=== PATIENT | female | born 1945 | race Caucasian/White ===

== ENCOUNTER 2019-01-10 12:35 | Emergency (ER) | payer OTHER ==
--- NOTE | 2019-01-10 12:41 | EDPHY ---
H & P Time Seen by Provider: 01/10/19 12:41 Constitutional: Initial Vital Signs Temperature (C) 36.8 C 01/10/19 12:35 Heart Rate 81 01/10/19 12:35 Respiratory Rate 16 01/10/19 12:35 Blood Pressure 130/92 H 01/10/19 12:35 O2 Sat (%) 95 01/10/19 12:35 O2 Delivery Mode Room Air Allergies/Adverse Reactions: iodine Allergy (Verified 01/10/19 13:10) Hives Home Medications: Medication Instructions Recorded Lamotrigine 01/10/19 Meloxicam 01/10/19 Methocarbamol 01/10/19 Topiramate 01/10/19 Tylenol 01/10/19 busPIRone 01/10/19 traMADol 01/10/19 Medical Decision Making - Diagnostics Imaging Results: Imaging Impressions Chest/Thorax CTA 01/10/19 12:47 Impression: 1. No visible pulmonary embolus, with bolus limitations despite repeat attempt. 2. Trace effusions, with atelectasis. 3. 3 mm left lower lobe nodule of doubtful clinical significance. If the patient is a smoker or is high risk, unenhanced low dose chest CT for follow up in 12 months is considered optional. Otherwise, no further follow up is needed per Fleischner Society criteria. 4. Additional findings, as above. Findings discussed with Jannie Herrera M.D., on January 10, 2019 at 2025. ED Course/Re-evaluation: CHIEF COMPLAINT: HISTORY OF PRESENT ILLNESS: The patient is a 73 y/o female with a history of a recent wrist surgery () arriving via EMS complaining of a chest pressure onset this morning. The patient recently had a right forearm surgery, but has not had any complications after the surgery. Today she developed an intense chest pressure for around 5- 10 minutes. She took 4 baby aspirin and called EMS. When EMS arrived, the chest pressure was only present while taking a deep breath. EMS noted a 5 beat run of V-tach while en route to the hospital. She continues to have the chest pressure primarily when breathing. No fever, headache, body aches, lightheadedness, heart palpitations, shortness of breath, cough, abdominal pain, urinary or bowel complaints, numbness, paresthesias. REVIEW OF SYSTEMS: A comprehensive 10 system review of systems is otherwise negative aside from elements mentioned in the history of present illness and medical decision making. PHYSICAL EXAM: HR, BP, O2 Sat, RR. Temp noted General Appearance: Alert, well hydrated, appropriate, and non-toxic appearing. Head: Atraumatic without scalp tenderness or obvious injury Eyes: Pupils equal, round, reactive to light and accommodation, EOMI, no trauma , no injection. Ears: Clear bilaterally, no perforation, normal landmarks Nose: Atraumatic, no rhinorrhea, clear. Throat: There is no erythema or exudates, no lesions, normal tonsils, mucus membranes moist. Neck: Supple, 2+ carotid upstroke, nontender, no lymphadenopathy. Respiratory: No retractions, no distress, no wheezes, and no accessory muscle use. Lungs are clear to auscultation bilaterally. Cardiovascular: Tachycardic, no murmurs, rubs, or gallops. Bilateral carotid, radial, dorsalis pedis, and posterior tibial pulses intact. Good capillary refill all extremities. Gastrointestinal: Abdomen is soft, nontender, non-distended, no masses, no rebound, no guarding, no peritoneal signs. Musculoskeletal: Normal active ROM of all extremities, atraumatic. Neurological: Alert, appropriate, and interactive. The patient has normal DTRs and non-focal cranial nerves, motor, sensory, and cerebellar exam. Skin: No rashes, good turgor, no nodules on palpation. Past medical history: Denies Past surgical history: Left wrist surgery Family history: Denies Social history: at bedside, lives in [place], employed at [employer] TIME: Chest CTA: Pending at shift change. EKG: The 12 lead EKG was interpreted by myself as sinus rhythm with a rate of 72. See hard copy and/or "tracemaster" electronic copy for interpretation. DIFFERENTIAL DIAGNOSIS: The differential diagnosis for the patient's chest pain included but was not limited to myocardial ischemia, pulmonary embolus, chest wall pain, pleural inflammation, and pulmonary infectious causes. MEDICAL DECISION MAKING: The patient is a 73 y/o female with a history of a recent wrist surgery () arriving via EMS complaining of a chest pressure onset this morning. This chest pressure is pleuritic in nature and she is mildly tachycardic on exam. She is not hypoxemic at this time. As she just had a surgery she will need a chest CTA to rule out a PE. Labs, chest CTA, and EKG ordered. 1242: I met EMS upon arrival. 1325: I interpreted patient's EKG as sinus rhythm with a rate of 72. 1500: Patient care turned over to Dr. Herrera at shift change. Her chest CTA is still pending. (Onur Fischer) 1500: Patient is signed out to me at change of shift by Dr. Fischer. The patient is awaiting CT angiogram. I reviewed the patient's laboratory studies. My evaluation the patient appeared well. She was answer my questions appropriately. She stated she had almost no chest pain at this time except for when she took a deep breath. She pointed to her upper sternum. General Appearance: Alert and no distress. Head: Pupils equal. Normal. Respiratory: Clear to auscultation bilaterally. Cardiac: regular rate and rhythm, no rubs murmurs or gallops. Extremities: Splint on right arm. Full range of motion, otherwise normal appearing. Skin: No rashes or lesions. Neuro: Alert. Normal mood and [place] [address]. Chemistry panel is unremarkable. Troponin is negative The patient reported an allergy to contrast dye. Because of this she received pretreatment of Benadryl and Solu-Medrol. CT angio chest: This was not an ideal study per Dr. Cardoza. He requested this study be repeated. I discussed the findings with Dr. Lee who was now on-call. A D-dimer was ordered. It was elevated at greater than 3. Because of this a CT angiogram was repeated with different technique. Dr. Lee felt that the CT angiogram was sufficient and there was no notable pulmonary embolus. I discussed the results with the patient. I answered all her questions. The patient's pain started earlier today. Her troponin and EKG are unremarkable. Her CT angiogram shows no pulmonary embolus. Patient was given warnings prior to leaving. She will return with worsening symptoms. (Jannie Herrera) - Data Points Laboratory Results: Laboratory Results 01/10/19 15:12 01/10/19 12:55 01/10/19 01/10/19 01/10/19 15:12 13:02 12:55 WBC 16.20 10^3/uL H 10^3/uL (3.80-9.50) RBC 5.73 10^6/uL H 10^6/uL (4.18-5.33) Hgb 15.2 g/dL g/dL (12.6-16.3) Hct 48.9 % H % (38.0-47.0) MCV 85.3 fL fL (81.5-99.8) MCH 26.5 pg L pg (27.9-34.1) MCHC 31.1 g/dL L g/dL (32.4-36.7) RDW 17.1 % H % (11.5-15.2) Plt Count 284 10^3/uL 10^3/uL (150-400) MPV 9.3 fL fL (8.7-11.7) Neut % (Auto) 75.1 % H % (39.3-74.2) Lymph % (Auto) 17.2 % % (15.0-45.0) [place] % (Auto) 6.0 % % (4.5-13.0) Eos % (Auto) 1.0 % % (0.6-7.6) Baso % (Auto) 0.3 % % (0.3-1.7) Nucleat RBC Rel Count 0.0 % % (0.0-0.2) Absolute Neuts (auto) 12.16 10^3/uL H 10^3/uL (1.70-6.50) Absolute Lymphs (auto) 2.79 10^3/uL 10^3/uL (1.00-3.00) Absolute Monos (auto) 0.97 10^3/uL H 10^3/uL (0.30-0.80) Absolute Eos (auto) 0.16 10^3/uL 10^3/uL (0.03-0.40) Absolute Basos (auto) 0.05 10^3/uL 10^3/uL (0.02-0.10) Absolute Nucleated RBC 0.00 10^3/uL 10^3/uL (0-0.01) Immature Gran % 0.4 % % (0.0-1.1) Immature Gran # 0.07 10^3/uL 10^3/uL (0.00-0.10) D-Dimer 3.70 ug/mLFEU H ug/mLFEU (0.00-0.50) Sodium Potassium Chloride Carbon Dioxide Anion Gap BUN Creatinine Estimated GFR Glucose Calcium POC Troponin I 0.00 ng/mL ng/mL (0.00-0.08) 01/10/19 01/10/19 12:55 12:55 WBC REJ RBC REJ Hgb REJ Hct REJ MCV REJ MCH REJ MCHC REJ RDW REJ Plt Count REJ MPV REJ Neut % (Auto) REJ Lymph % (Auto) REJ [place] % (Auto) REJ Eos % (Auto) REJ Baso % (Auto) REJ Nucleat RBC Rel Count REJ Absolute Neuts (auto) REJ Absolute Lymphs (auto) REJ Absolute Monos (auto) REJ Absolute Eos (auto) REJ Absolute Basos (auto) REJ Absolute Nucleated RBC REJ Immature Gran % REJ Immature Gran # REJ D-Dimer Sodium 140 mEq/L mEq/L (135-145) Potassium 3.9 mEq/L mEq/L (3.5-5.2) Chloride 106 mEq/L mEq/L (97-110) Carbon Dioxide 24 mEq/l mEq/l (22-31) Anion Gap 10 mEq/L mEq/L (6-14) BUN 15 mg/dL mg/dL (7-23) Creatinine 0.8 mg/dL mg/dL (0.6-1.0) Estimated GFR > 60 Glucose 97 mg/dL mg/dL (70-100) Calcium 9.3 mg/dL mg/dL (8.5-10.4) POC Troponin I Medications Given: Discontinued Medications Diphenhydramine HCl (Benadryl Injection) 25 mg IVP EDNOW ONE Stop: 01/10/19 14:55 Last Admin: 01/10/19 16:00 Dose: 25 mg Ketorolac Tromethamine (Toradol) 15 mg IVP EDNOW ONE Stop: 01/10/19 19:51 Last Admin: 01/10/19 20:29 Dose: 15 mg Methylprednisolone Sodium Succinate (Solu-Medrol) 125 mg IVP EDNOW ONE Stop: 01/10/19 14:55 Last Admin: 01/10/19 16:01 Dose: 125 mg Point of Care Test Results: Chemistry 01/10/19 13:02 POC Troponin I 0.00 ng/mL ng/mL (0.00-0.08) Departure - Departure Disposition: Home, Routine, Self-Care Clinical Impression: Pleuritic chest pain Condition: Good Instructions: Chest Pain (ED) Additional Instructions: 1. Follow-up with your primary doctor within 72 hours. 2. Return to the Emergency Department for fever, chest pain, shortness of breath , increasing pain or other worsening of condition. 3. Follow up with a wool merchant for further testing, as soon as possible, within one week. 4. As we discussed, it is impossible to fully rule out heart disease as the cause of your chest pain in the emergency department. 5. We would be happy to reevaluate you and observe you in the hospital at any time. Referrals: Moisés Cedeño MD [Medical Doctor] - 2-3 days without fail Report Scribed for: Onur Fischer Report Scribed by: Cate Briseno Date of Report: 01/10/19 Time of Report: 13:01
[2019-01-10] MEDS ORDERED: IOPAMIDOL (ISOVUE 370) 100 ML BTL IV ONE ×2 (13:47→19:31)
[2019-01-10] MEDS ORDERED: methylPREDNISolone SOD SUCC 125 MG/2 ML VIAL IVP ONE (14:54)
[2019-01-10 15:26] LABS: PLATELET COUNT 284 10^3/uL (150-400)
[2019-01-10] MEDS ORDERED: KETOROLAC 15 MG/1 ML SDV IVP ONE (19:50)
[2019-01-10 21:31] VITALS: BP 139/89
== END 2019-01-10 21:31 | disposition home or self-care (01) ==
LOC: EDUNIT#
DX: R07.89 Other chest pain (principal); R79.89 Other specified abnormal findings of blood chemistry; R91.1 Solitary pulmonary nodule
CPT/HCPCS: 84484-ER; 96374; J1200; J1885; J2930; Q9967

== ENCOUNTER 2019-04-21 12:17 | Emergency (ER) | payer OTHER | END 2019-04-21 14:29 | disposition home or self-care (01) ==